=== PATIENT | female | born 1955 | race Caucasian/White ===

== ENCOUNTER 2019-05-06 13:21 | Observation (INO) | payer MEDICARE ==
[2019-05-06] MEDS ORDERED: Proparacaine 0.5% Opth 15 ML BOT ONE (13:49)
[2019-05-06] MEDS ORDERED: Meclizine HCl 25 MG TAB ONE (14:24)
[2019-05-06] MEDS ORDERED: hydrALAZINE 20 MG/ML VIAL SLOW IVP PRN (15:21)
[2019-05-06] MEDS ORDERED: Labetalol HCl 100 MG/20 ML VIAL SLOW IVP PRN (15:21)
[2019-05-06] MEDS ORDERED: Aspirin 325 mg Enteric Coated Tablet PO SCH (15:30)
--- NOTE | 2019-05-06 15:35 | PDOC.HHP ---
Hospitalist HPI - History of Present Illness Headache, blurry vision History of Present Illness: PCP: Lida Nj ([place]) The patient is a 64/F with PMH significant for TIA (2016), HTN, DMII (diet controlled), HLD, and anxiety that presents for the above complaints. Reports at approximately 0900 this morning, she was driving in her car when she developed a frontal headache, describes as sharp, lasting approximately 20 to 30 minutes, exacerbated with moving her eyes, relieved by nothing. She also reports associated blurry vision, describes as "like a haze", exacerbated with eye movements. Admits to feeling dizziness, like the room is spinning. She denies any recent trauma to head, falls, acute neck stiffness, or urinary incontinence. She immediately pulled her car over and called her daughter on her cell phone, only able to find her name on her phone because she is the first person in her contact list. Her daughter reports that the patient had slurred speech while speaking on the phone. She drove to her mother and took her to the nearest emergency department. Estimated 30 minutes from onset of symptoms to the [facility] ER. ED Course: GCS 14, confused NIH 1, partial gaze palsy CT brain negative for hemorrhage. EKG NSR Trop negative CMP and CBC unremarkable Given Tylenol for headache and transferred to [facility] Na 146, K 4.3, BUN 11, creatinine 0.6, Glucose 109, WBC 8.5, hgb 14.2, hct 44.1 , platelets 249 PT 12.5 and INR 1.0 At [facility] BP 156/86, HR 74, RR 18, spo2 98% RA, T 97.6f Meclizine 50mg oral x 1 dose Vision acuity test performed Hospitalist ROS - Review of Systems Constitutional: denies: fever, chills, sweats, weakness, malaise, other Eyes: reports: vision change (blurry, double vision) ENT: denies: nose discharge, nose congestion, throat pain (Reports chronic tinnitus) Respiratory: denies: cough, dry, shortness of breath, hemoptysis, SOB with excertion, pleuritic pain, sputum, wheezing, other Cardiovascular: denies: chest pain, palpitations, orthopnea, paroxysmal noc. dyspnea, edema, light headedness, other Gastrointestinal: reports: nausea. denies: vomiting, abdominal pain, diarrhea, constipation, hematochezia Genitourinary: denies: dysuria, frequency, incontinence, hematuria, retention, other Musculoskeletal: reports: neck pain (chronic), back pain (chronic) Skin: denies: rash, lesions, bruising Neurological: reports: weakness, change in speech, confusion. denies: incoordination Hospitalist History - Past Medical History Source: patient Cardiac: reports: HTN, Hyperlipidemia Pulmonary: reports: asthma, bronchitis [employer]CHITECT: reports: TIA Psych: reports: Anxiety Musculoskeletal: reports: Osteoarthritis Endocrine: reports: Diabetes (controlled with diet) - Past Surgical History Past Surgical History: reports: Appendectomy, Cholecystectomy, Hysterectomy, Total Hip Replacement (right), Total Knee Replacement (Left), Other (back surgery L5) - Family History Family History: reports: cardiac disorder, cerebrovascular accident, diabetes mellitus, hypertension, respiratory disorder - Social History Smoking Status: Former smoker (Quit 27 years ago) Alcohol: reports: None Drugs: reports: none Living Situation: With Family Occupation: Lives in [place], with spouse, on disability - Exam General Appearance: NAD ([employer] HINTS exam, no nystagmus, unremarkable test of skew; Became dizzy w/ testing CN III, IV, . Central truncal stability intact, while sitting on bed.), awake alert Eye: PERRL ENT: normocephalic atraumatic, moist mucosa Neck: supple, no thyromegaly, no lymphadenopathy, no carotid bruit Heart: RRR, no murmur, no gallops, no rubs Respiratory: CTAB, no wheezes, no rales, no ronchi Gastrointestinal: soft, non-tender, non-distended, normal bowel sounds, no guarding, no rigidity Extremities: no cyanosis, no edema Skin: no rashes Neurological: negative: facial droop, speech deficit Neurological - other findings: numbness to L face and LLE, ataxic with finger to nose Psychiatric: normal affect, A&O x 3 Hospitalist Results - EKG Interpretation EKG: NSR from [facility] Hospitalist H&P A/P - Plan Plan: Vertigo TIA r/o CVA HTN DMII HLD Non compliance with medication regimen H/O TIA Anxiety, chronic OA, chronic Bronchitis, chronic Plan: Admit to stroke unit monitoring coordinator, repeat troponin MRI brain, CD US, Echocardiogram Consult Neurology Consult PT/OT ASA daily Mecline scheduled orthostatics VS NIH per shift Accuchecks AC/HS, mild Sliding scale DVT prophylaxis BMP, CBC, FLP, B12, Folic acid in AM Full Code DPOA, spouse, Rory Sandoval, .
[2019-05-06] MEDS ORDERED: HumaLOG 300 UNITS/3 ML VIAL SC PRN (16:06)
[2019-05-06] MEDS ORDERED: Dextrose 5% in Water 1,000 ML IV PRN (16:06)
[2019-05-06] MEDS ORDERED: Dextrose 50% Abboject 50 ML SYRINGE SLOW IVP PRN (16:06)
[2019-05-06] MEDS ORDERED: Calcium Carbonate 500 MG ChewTAB PO PRN (16:15)
[2019-05-06] MEDS ORDERED: Acetaminophen 650 MG Suppository PR PRN (16:15)
--- NOTE | 2019-05-06 16:46 | MRI ---
MRI of thebrain: 05/06/2019 COMPARISON:None available HISTORY:Numbness and weakness of the fingers for a few days, blurred vision TECHNIQUE: Multiplanar multisequence MR imaging of thebrain without contrast Findings:The diffusion weighted imaging demonstrates no evidence for acute infarction. The axial grad ient echo imaging demonstrates no evidence for intracranial hemorrhage. There is a Chiari I malformation present, with the cerebellar tonsils extending 1 cm below the axial level of the foramen magnum. There are a few opacified mastoid air cells on the right, paranasal sinuses and mastoid air cells oth erwise unremarkable. Arterial flow voids at the axial level of the skull base appear unremarkable on the T2-weighted imaging. There are a few scattered foci of increased T2/FLAIR signal within the periventricular, deep, and sub cortical white matter, evidence of mild small vessel disease. IMPRESSION:Mild small vessel disease. Chiari I malformation. No intracranial hemorrhage or acute infa rction.
[2019-05-06] MEDS ORDERED: Aspirin Chewable 81 MG TAB ONE (17:06)
[2019-05-06] MEDS ORDERED: Propofol 1,000 MG/100 ML VIAL IV ONE (17:24)
[2019-05-06 17:45] LABS: Troponin I Less than 0.010 ng/mL (< 0.028)
[2019-05-06] MEDS ORDERED: predniSONE 20 MG TAB PO SCH (17:45)
[2019-05-06] MEDS ORDERED: Benzonatate 100 MG CAP PO PRN (17:56)
[2019-05-06] MEDS ORDERED: tiZANidine HCl 4 MG TAB PO PRN (18:54)
[2019-05-06] MEDS ORDERED: PROVENTIL INHALER 6.7 G (200 INHALATIONS) INH PRN (18:54)
[2019-05-06] MEDS ORDERED: DULoxetine 30 MG CAP PO PRN (18:54)
[2019-05-06] MEDS ORDERED: hydrALAZINE 10 MG TAB PO PRN (18:54)
[2019-05-06 19:31] VITALS: BMI 38.8
[2019-05-06] MEDS ORDERED: Famotidine 20 MG TAB PO SCH (21:00)
[2019-05-06] MEDS: Meclizine HCl 25 MG TAB PO SCH (21:56)
[2019-05-06] MEDS: Montelukast Sodium 10 mg Tablet PO SCH (21:59)
[2019-05-06] MEDS: Atorvastatin Calcium 20 MG TAB PO SCH (21:59)
[2019-05-06] MEDS: Acetaminophen 325 MG TAB PO PRN (21:59)
--- NOTE | 2019-05-06 22:48 | PRG ---
DATE OF SERVICE: 05/06/2019 SUBJECTIVE: A 64-year-old female with hypertension, diabetes mellitus type 2, hyperlipidemia, and TIA in the past, presented to [facility] with headaches along with blurriness of vision and vertigo. A CT scan of the brain was negative. She was transferred to this facility for hospital admission. OBJECTIVE: VITAL SIGNS: Reviewed. Her blood pressure in the emergency room was 156/86 with heart rate of 74. LUNGS: Clear to auscultation bilaterally. HEART: S1, S2 present. Regular. ABDOMEN: Soft. NEUROLOGIC: Grossly nonfocal. After meclizine in the emergency room, the vertigo has partially improved. Power was 5/5 in all extremities. There was no facial droop. There was minimal numbness on the left half of the face. The patient was alert, awake, oriented x3. LABORATORY DATA: EKG showed sinus rhythm. Labs were reviewed. PLAN: MRI of the brain will be obtained. We will continue sliding scale. Continue aspirin with statins. I agree with history and physical by the nurse practitioner, Ron Santiago. Job ID: [id number]
--- NOTE | 2019-05-06 23:39 | ULT ---
BILATERAL CAROTID DUPLEX ULTRASOUND: HISTORY: CVA, TIA, slurred speech and weakness TECHNIQUE: Grayscale, color-flow and spectral Doppler ultrasound imaging of the extracranial carotid artery syst ems was performed bilaterally. FINDINGS: There is plaque formation on both sides. The peak systolic velocity in the right ICA measures 103 cm/s with an end-diastolic velocity of 39 cm /s and a systolic ratio of 0.99. The peak systolic velocity in the left ICA measures 87 cm/s with an end-diastolic velocity of 24 cm/s and a systolic ratio of 0.86. Flow in both vertebral arteries remains antegrade. IMPRESSION: No evidence of hemodynamically significant stenosis in either ICA.
[2019-05-07 05:34] LABS: Cardiac Risk 2.8 (Less than 4.5)
[2019-05-07] MEDS: Meclizine HCl 25 MG TAB PO SCH ×3 (05:40→21:44)
[2019-05-07] MEDS ORDERED: predniSONE 20 MG TAB PO SCH (08:00)
[2019-05-07] MEDS: Enoxaparin Sodium 40 MG/0.4 ML SYRINGE SC SCH (08:49)
[2019-05-07] MEDS: Aspirin 81 mg Enteric Coated Tablet PO SCH (08:50)
[2019-05-07] MEDS ORDERED: FLU VACC QS2019-20(6MOS UP)/PF 60 MCG/0.5 ML SYRINGE IM ONE (09:00)
[2019-05-07] MEDS ORDERED: Aspirin 325 MG TAB PO SCH (09:00)
[2019-05-07] MEDS ORDERED: Cyanocobalamin 1000 MCG/ML VIAL IM SCH (09:45)
--- NOTE | 2019-05-07 10:39 | PDOC.HOSPP ---
- Subjective Encounter Date: 05/07/19 Encounter Time: 10:20 Subjective: Patient seen and examined for vertigo, blurry vision, and ataxia. Patient reports symptoms improved on meclizine. Denies any current vertigo or vision changes. Has no new complaints. No overnight events. - Objective Vital Signs & Weight: Vital Signs (12 hours) Temp Pulse Resp BP BP BP BP 05/07/19 08:41 139/69 157/81 H 137/60 05/07/19 07:56 97.6 F 66 13 148/61 H 05/07/19 04:00 97.8 F 70 16 151/68 H 05/07/19 00:00 97.7 F 70 16 135/50 L Pulse Ox 05/07/19 08:41 05/07/19 07:56 94 L 05/07/19 04:00 93 L 05/07/19 00:00 92 L Weight Weight 219 lb 4.8 oz Additional Labs: Accuchecks 05/06/19 22:18 POC Glucose 98 Laboratory Tests 05/07/19 05/07/19 05/07/19 04:45 04:45 04:45 Triglycerides 187 H Cholesterol 152 LDL Cholesterol, Calc 61 HDL Cholesterol 54 Heart Disease Risk Ratio 2.8 Vitamin B12 263 Folate 8.20 EKG Reviewed by me: Yes (NSR) Hospitalist ROS - Review of Systems Constitutional: denies: fever, chills, sweats, weakness, malaise, other Eyes: denies: pain, vision change, conjunctivae inflammation, eyelid inflammation, redness, other Respiratory: denies: cough, dry, shortness of breath, hemoptysis, SOB with excertion, pleuritic pain, sputum, wheezing, other Cardiovascular: denies: chest pain, palpitations, orthopnea, paroxysmal noc. dyspnea, edema, light headedness, other Gastrointestinal: denies: nausea, vomiting, abdominal pain, diarrhea, constipation, melena, hematochezia, other Neurological: denies: weakness, numbness, incoordination, change in speech, confusion, seizures, other Other: denies headaches, dizziness, or weakness to extremities. - Medication Medications: Active Medications Generic Name Dose Route Start Last Admin Trade Name Freq PRN Reason Stop Dose Admin Acetaminophen 650 mg 05/06/19 16:15 05/06/19 21:59 Tylenol PO 650 mg Q4H PRN Administration Headache/Fever/Mild Pain (1-3) Aspirin 81 mg 05/07/19 09:00 05/07/19 08:50 Ecotrin PO 81 mg DAILY SHAYY Administration Atorvastatin Calcium 20 mg 05/06/19 21:00 05/06/19 21:59 Lipitor PO 20 mg HS SHAYY Administration Cyanocobalamin 1,000 mcg 05/07/19 09:45 05/07/19 10:30 Vitamin B-12 IM 05/07/19 12:00 1,000 mcg NOW SHAYY Administration Enoxaparin Sodium 40 mg 05/07/19 09:00 05/07/19 08:49 Lovenox SC 40 mg 0900 SHAYY Administration Meclizine HCl 25 mg 05/06/19 22:00 05/07/19 05:40 Antivert PO 25 mg Q8HR SHAYY Administration Metoprolol Succinate 50 mg 05/06/19 21:00 05/06/19 21:59 Toprol Xl PO 50 mg HS SHAYY Administration Montelukast Sodium 10 mg 05/06/19 21:00 05/06/19 21:59 Singulair PO Not Given HS SHAYY Pantoprazole Sodium 40 mg 05/07/19 09:00 05/07/19 08:50 Protonix PO 40 mg DAILY SHAYY Administration Sodium Chloride 10 ml 05/06/19 15:21 05/07/19 08:50 Flush - Normal Saline IVF 10 ml PRN PRN Administration Saline Flush - Exam General Appearance: NAD, awake alert Eye: PERRL ENT: normocephalic atraumatic Heart: RRR, no murmur, no gallops, no rubs, normal peripheral pulses Respiratory: CTAB, no wheezes, no rales, no ronchi Gastrointestinal: soft, non-tender, non-distended, normal bowel sounds Neurological: cranial nerve grossly intact, no focal deficits Musculoskeletal: normal tone, normal strength Psychiatric: normal affect, A&O x 3 Hosp A/P - Plan Blurry headache, blurry vision, ataxia, likely secondary chiari malformation 1 CVA ruled out HTN, chronic, controlled DMII, chronic HLD Non compliance with medication regimen H/O TIA Anxiety, chronic OA, chronic Bronchitis, chronic Plan: Continue meclizine Consulted neurology Consulted neurosurgery PT/OT to evaluate and treat Stop NIH q shift Continue ASA daily Continue home medications Accuchecks AC/HS DVT prophylaxis
--- NOTE | 2019-05-07 12:10 | PRG ---
DATE OF SERVICE: 05/07/2019 This is a 30-minute initial visit note, in which 30 minutes were spent reviewing the imaging record, evaluation and examination of patient, formulation of plan. Greater than 50% time was spent in counseling on Anitra Sandoval, 1955. I reviewed the notes of my colleague, Esthela Cook PA-C, and agrees with its content. Ms. Sandoval is a 64-year-old woman who presented with classic symptoms of posterior fossa headache and blurred vision, that certainly could be related to Chiari 1 malformation. She has approximately 10 mm of descent of her cerebellar tonsils down to the C1 ring and would likely benefit from a Chiari decompression. However, I would not recommend this at this current time. I will arrange for followup in my clinic. She will need a cervical spine MRI without and with contrast to further evaluate for the presence of a syrinx and the cervical cord. We will then discuss in clinic risks and benefits of Chiari 1 decompression with tensor fascia joycelyn duraplasty. The patient tells me she also has "bulging disks" in her neck and the cervical spine MRI will help us in that regard to determine the necessity of treating that . She may be sent home in any time. Our medical colleagues feel appropriate Chiari 1 malformation. Job ID: [id number]
[2019-05-07] MEDS ORDERED: Meclizine HCl 25 MG TAB PO PRN (12:25)
[2019-05-07] MEDS ORDERED: Ketorolac Tromethamine 30 MG/ML VIAL IVP SCH (17:15)
--- NOTE | 2019-05-07 17:19 | CON ---
DATE OF CONSULTATION: 05/07/2019 CONSULTING PHYSICIAN: Hospitalist Services. IMPRESSION: Migraine. PLAN: Toradol 30 mg IV now. HISTORY OF PRESENT ILLNESS: Ms. Sandoval is a 64-year-old woman with a past history of migraines, diabetes, hypertension, and hyperlipidemia. She presented to the hospital with complaints of a severe headache and some blurred vision. Her headache is still ongoing at this point. The blurred vision waxes and wanes. Her vital signs have been stable and she is afebrile. She had an MRI of the brain done, which only showed some minimal small-vessel ischemic changes. A carotid ultrasound did not show any stenosis. Her EKG shows a normal sinus rhythm. Her CT scan of the brain did not reveal any evidence of a bleed. PAST HISTORY: 1. Migraine. 2. Hypertension. 3. Diabetes. 4. Hyperlipidemia. ALLERGIES: NONE. SOCIAL HISTORY: No tobacco. FAMILY HISTORY: Noncontributory. REVIEW OF SYSTEMS: Ten-system review of systems is otherwise negative. PHYSICAL EXAMINATION: GENERAL: She is an overweight, middle-aged woman, in no acute distress. VITAL SIGNS: Blood pressure 148/61, pulse 66, respirations 13. HEENT: Pupils equal. Conjunctivae clear. Oropharynx clear. NECK: Supple. EXTREMITIES: No cyanosis or edema. NEUROLOGIC: She is alert and appropriate. Her speech is fluent and clear. Cranial nerves are intact. She has equal strength. She can stand and walk independently. No abnormal movements were seen. LABORATORY DATA: EKG shows a sinus rhythm. SUMMARY: This a middle-aged woman with history of migraines, presents with some headache and blurred vision. Her stroke workup is negative. I have ordered some Toradol and she can follow up with me as an outpatient. Job ID: [id number]
[2019-05-07] MEDS: Montelukast Sodium 10 mg Tablet PO SCH (21:44)
[2019-05-07] MEDS: Atorvastatin Calcium 20 MG TAB PO SCH (21:44)
[2019-05-08] MEDS: Meclizine HCl 25 MG TAB PO SCH ×2 (05:56→14:31)
[2019-05-08] MEDS ORDERED: Cyanocobalamin (Vitamin B-12) 1,000 MCG TAB PO SCH (09:00)
[2019-05-08] MEDS: Enoxaparin Sodium 40 MG/0.4 ML SYRINGE SC SCH (09:03)
[2019-05-08] MEDS: Aspirin 81 mg Enteric Coated Tablet PO SCH (09:04)
[2019-05-08] MEDS: Acetaminophen 325 MG TAB PO PRN ×2 (10:51→16:36)
[2019-05-08] MEDS ORDERED: hydrALAZINE 25 MG TAB PO SCH ×2 (13:30→21:00)
[2019-05-08 15:53] VITALS: BP 174/76; TEMP 97.7
--- NOTE | 2019-05-08 19:56 | DIS ---
DATE OF ADMISSION: 05/06/2019 DATE OF DISCHARGE: 05/08/2019 DISCHARGE DISPOSITION: Home. FOLLOWUP: 1. Follow up with primary care physician, Dr. Jesus Nj, in 1 week. 2. Follow up with Neurosurgery, Dr. Brice, as scheduled. ALLERGIES: NO KNOWN DRUG ALLERGIES. THE PATIENT WAS SEEN ON THE DAY OF DISCHARGE. DENIES ANY NEW COMPLAINTS. NO NEW FOCAL DEFICIT. BRIEF HOSPITAL COURSE: The patient is a 64-year-old female with hypertension, diabetes mellitus type 2, hyperlipidemia, and TIA in the past, presented to the emergency room with headache, blurriness of vision along with vertigo. Please refer to the history and physical for further details. The patient was admitted to the Stroke Unit with a diagnosis of suspected transient ischemic attack rule out CVA. MRI of the brain was obtained, which showed Chiari I malformation along with mild small-vessel disease. There was no acute CVA. Carotid Doppler was negative for hemodynamically significant stenosis. Echocardiogram showed ejection fraction 55% to 60% with mild mitral regurgitation and mild tricuspid regurgitation. The patient was evaluated by Neurology and Neurosurgery. The patient was advised to follow up with Neurosurgery as an outpatient. She will require cervical spine MRI with and without contrast as outpatient per Neurosurgery recommendation. The patient appears stable for discharge. Her symptoms have significantly improved. She ambulated 500 feet today with a walker. A prescription for walker was provided. She was advised to follow up with the primary care physician. Significant labs; vitamin B12 of 263. Folate 8.2. Fasting lipid showed triglyceride 187, cholesterol 152, LDL 61, HDL 54. The patient understands the above plan of care. Job ID: [id number]
== END 2019-05-08 18:10 | disposition home or self-care (01) ==
LOC: ERS 13:21 → 2SE 19:20
PROVIDERS: ADMIT Internal Medicine; ATTEND Internal Medicine
DX: G93.5 Compression of brain (principal); I10 Essential (primary) hypertension; E11.9 Type 2 diabetes mellitus without complications; E78.5 Hyperlipidemia, unspecified; F41.9 Anxiety disorder, unspecified; J42 Unspecified chronic bronchitis; M19.90 Unspecified osteoarthritis, unspecified site; Z87.891 Personal history of nicotine dependence; Z91.14 Patient's other noncompliance with medication regimen; Z86.73 Personal history of transient ischemic attack (TIA), and cerebral infarction without residual deficits; Z88.0 Allergy status to penicillin
CPT/HCPCS: 70551; 80061; 82607; 82746; 82962 ×2; 84484; 93005; 93306; 93880; 96372 ×2; 96374; 97116 ×2; 97139 ×3; 97530; 99285; G0378 ×4; 36415; 36416; J1650; J1885; J2704; J3420; J8597

== ENCOUNTER 2019-08-11 06:50 | Outpatient (CLI) | payer MEDICARE, OTHER ==
[2019-08-11 10:13] LABS: Hemoglobin 13.7 g/dL (12.0-16.0); Mean Corpuscular HGB CONC 33.3 g/dL (32.0-36.0); Mean Corpuscular Volume 92.9 fL (78.0-98.0); Mean Platelet Volume 8.8 fL (7.4-10.4); Platelet Count 232 thou/uL (130-400); RBC Distribution Width 12.1 % (11.5-14.5); Red Blood Cell (RBC) Count 4.43 mill/uL (4.20-5.40); White Blood Cell (WBC) Count 8.2 thou/uL (4.8-10.8)
[2019-08-11 10:20] LABS: INR-International Normal Ratio 0.9; PTT 30.9 sec (22.9-36.1); Prothrombin Time 11.8 sec (12.0-14.7)
[2019-08-11 10:34] LABS: Anion Gap 12 mmol/L (10-20); BUN (Urea Nitrogen) 13 mg/dL (9.8-20.1); Calc. Creatinine Clearance 0 mL/min (70-130); Calcium 9.5 mg/dL (7.8-10.44); Carbon Dioxide 28 mmol/L (23-31); Chloride 105 mmol/L (98-107); Estimated GFR-MDRD 79; Glucose 112 mg/dL (80-115); Sodium 141 mmol/L (136-145)
[2019-08-11 17:44] LABS: SARS-CoV-2 MS2 Positive; SARS-CoV-2 N Gene Negative; SARS-CoV-2 S Gene Negative; SARS-CoV-2 orf1ab Negative
== END 2019-08-11 06:51 | disposition home or self-care (01) ==
LOC: LABBT 06:50
PROVIDERS: ATTEND Surgery
DX: Z01.812 Encounter for preprocedural laboratory examination (principal); Z11.59 Encounter for screening for other viral diseases; G93.5 Compression of brain
CPT/HCPCS: 80048; 85027; 85610; 85730; 93005; U0003; 87635; 93010

== ENCOUNTER 2019-08-13 05:45 | Inpatient (IN) | payer MEDICARE, OTHER ==
[2019-08-11 08:20] VITALS: BMI 43.9
[2019-08-13] MEDS ORDERED: Thrombin 5000 UNITS/5 ML VIAL ONE (06:35)
[2019-08-13] MEDS ORDERED: Clindamycin/D5W 900 mg/50 ml Premix Bag ONE (06:44)
[2019-08-13] MEDS ORDERED: Levofloxacin 500 mg/D5W 100 ml Premix Bag ONE (06:44)
[2019-08-13] MEDS ORDERED: Bacitracin Zinc Ointment 30 gm TUBE ONE (06:52)
[2019-08-13] MEDS ORDERED: Fentanyl 250 MCG/5 ML VIAL ONE (07:04)
[2019-08-13] MEDS ORDERED: SUGAMMADEX SODIUM 200 MG/2 ML VIAL ONE (07:04)
[2019-08-13] MEDS ORDERED: levETIRAcetam 1000 MG/100 ML PREMIX BAG ONE (07:05)
[2019-08-13] MEDS ORDERED: levETIRAcetam 500 MG/100 ML PREMIX BAG ONE (07:05)
[2019-08-13] MEDS ORDERED: Albumin 5% 500 ML ONE (07:05)
[2019-08-13] MEDS ORDERED: Midazolam HCl 2 mg/2 ml Vial ONE (07:15)
[2019-08-13] MEDS ORDERED: Phenylephrine 10 MG/ML VIAL ONE (10:28)
[2019-08-13] MEDS ORDERED: PHENYLEPHRINE-NS 100 MCG/ML 10 ML SYRINGE ONE ×2 (10:28→14:11)
[2019-08-13] MEDS ORDERED: Promethazine HCl 25 MG/ML VIAL IM PRN (10:36)
[2019-08-13] MEDS ORDERED: HYDROmorphone 2 MG/ML VIAL SLOW IVP PRN (10:36)
[2019-08-13] MEDS ORDERED: Ondansetron HCl/PF 4 MG/2 ML Vial IVP PRN (10:36)
[2019-08-13] MEDS ORDERED: Promethazine HCl 25 MG/ML VIAL SLOW IVP PRN (10:36)
[2019-08-13] MEDS ORDERED: PACU-Morphine 4MG/ML VIAL SLOW IVP PRN (10:36)
[2019-08-13] MEDS ORDERED: Morphine Sulfate 2 MG/ML SYRINGE SLOW IVP PRN (10:36)
[2019-08-13] MEDS ORDERED: Docusate 100 MG CAP PO PRN (11:20)
[2019-08-13] MEDS ORDERED: Acetaminophen 325 MG TAB PO PRN (11:20)
[2019-08-13] MEDS ORDERED: Esmolol 100 MG/10 ML VIAL ONE ×2 (11:26→14:11)
[2019-08-13] MEDS ORDERED: Benzonatate 100 MG CAP PO PRN (11:27)
[2019-08-13] MEDS ORDERED: Montelukast Sodium 10 mg Tablet PO PRN (11:27)
[2019-08-13] MEDS ORDERED: Acetaminophen/Codeine 30-300mg Tablet PO PRN (11:27)
[2019-08-13] MEDS ORDERED: Meclizine HCl 25 MG TAB PO PRN (11:27)
[2019-08-13] MEDS ORDERED: hydrALAZINE 25 MG TAB PO PRN (11:27)
[2019-08-13] MEDS ORDERED: Fentanyl 100 MCG/2 ML VIAL ONE ×2 (11:54→12:17)
[2019-08-13] MEDS ORDERED: Albuterol Sulfate 2.5 mg/3 ml Neb NEB PRN (12:00)
[2019-08-13] MEDS: Sodium Chloride 0.9% 1,000 ML IV SCH ×2 (12:55→23:43)
[2019-08-13] MEDS: Clindamycin/D5W 900 MG in Premix Bag 1 BAG IVPB SCH ×2 (13:38→19:41)
[2019-08-13] MEDS ORDERED: Dexamethasone 20 MG/5 ML VIAL ONE (14:11)
[2019-08-13] MEDS ORDERED: EPHEDRINE 25 MG/5 ML SYRINGE ONE (14:11)
[2019-08-13] MEDS ORDERED: Lidocaine 1% PF 5 ML VIAL ONE ×2 (14:11)
[2019-08-13] MEDS ORDERED: Ondansetron PF 4 MG/2 ML Vial ONE (14:11)
[2019-08-13] MEDS ORDERED: PROPOFOL 200 MG/20 ML VIAL ONE (14:11)
--- NOTE | 2019-08-13 14:11 | OP ---
DATE OF PROCEDURE: 08/13/2019 LOCOMOTIVE DRIVER: Esthela Cook PA-C. PREPROCEDURE DIAGNOSES: Chiari I malformation with tonsillar descent to the C1 ring with suboccipital headaches and blurred vision. POSTPROCEDURE DIAGNOSES: Chiari I malformation with tonsillar descent to the C1 ring with suboccipital headaches and blurred vision. PROCEDURE PERFORMED: 1. Suboccipital decompression, C1 laminectomy to relieve pressure due to Chiari I malformation. 2. Lysis of arachnoid adhesions around the tonsils of the cerebellum and caodaism of CSF flow across the foramen magnum. 3. Use of operative microscope for microdissection. 4. Harvesting of left fascia joycelyn graft and use for dural patch repair. DESCRIPTION OF PROCEDURE: After informed consent was obtained from the patient, the patient was brought to the OR. Proper patient, pause, and identification were carried out. She was placed under excellent general endotracheal anesthesia and positioned prone on the OR table. Following placement of Mars Preethi head shipper, head was secured in chin-tuck position and all appropriate areas were sterilely cleansed, prepared, and draped in the suboccipital region. Hair was clipped. Also, left fascia joycelyn wound was identified. This area was sterilely cleansed, prepared, and draped. Proper patient, pause, and identification were carried out. The wound was then opened with a combination of sharp, monopolar, and blunt dissection. Suboccipital craniectomy was then performed. We were careful to preserve the space lateral to the foramen magnum and there was no violation of the atlantooccipital joints bilaterally. We also did C1 laminectomy. The dura was then opened in a Y-shaped fashion with abrupt release of CSF indicating pressure across foramen magnum above and below. We then lysed adhesions with the use of the operating microscope around the tonsils to restore flow. We then turned our attention to harvesting the left fascia joycelyn graft and this was done. This was brought up following irrigation and closed with the dura to widen the dural repair. Copious irrigation occurred throughout as did maximizing hemostasis. The wounds were closed in anatomic layers following sprinkling of vancomycin powder. The patient emerged from anesthesia. Job ID: [id number]
[2019-08-13] MEDS: Ondansetron PF 4 MG/2 ML Vial IVP PRN ×3 (14:21→23:43)
[2019-08-13] MEDS: Morphine 2 MG/ML SYRINGE SLOW IVP PRN ×4 (14:31→20:58)
[2019-08-13] MEDS ORDERED: Labetalol HCl 100 MG/20 ML VIAL SLOW IVP PRN (17:01)
[2019-08-13] MEDS: Atorvastatin Calcium 20 MG TAB PO SCH (20:26)
[2019-08-13] MEDS: niCARdipine 25 MG in Sodium Chloride 0.9% 250 ML 240 ML IVPB SCH (20:41)
[2019-08-14] MEDS: niCARdipine 25 MG in Sodium Chloride 0.9% 250 ML 240 ML IVPB SCH ×6 (01:22→21:51)
[2019-08-14] MEDS: Clindamycin/D5W 900 MG in Premix Bag 1 BAG IVPB SCH ×4 (02:14→20:45)
[2019-08-14 03:58] LABS: Anion Gap 15 mmol/L (10-20); BUN (Urea Nitrogen) 9 mg/dL (9.8-20.1); Calc. Creatinine Clearance 124 mL/min (70-130); Calcium 8.2 mg/dL (7.8-10.44); Carbon Dioxide 19 mmol/L (23-31); Chloride 106 mmol/L (98-107); Estimated GFR-MDRD 79; Glucose 166 mg/dL (80-115); Potassium 4.2 mmol/L (3.5-5.1); Sodium 136 mmol/L (136-145)
[2019-08-14 04:02] LABS: #Basophils 0.1 thou/uL (0.0-0.2); #Lymphocytes 1.3 thou/uL (1.20-3.40); #Monocytes 1.2 thou/uL (0.11-0.59); #Neutrophils 14.8 thou/uL (1.40-6.50); %Basophils 0.6 % (0.0-1.0); %Eosinophils 0.2 % (0.0-10.0); %Lymphocytes 7.5 % (21.0-51.0); %Neutrophils 84.7 % (42.0-75.0); Hemoglobin 13.2 g/dL (12.0-16.0); Mean Corpuscular HGB CONC 33.1 g/dL (32.0-36.0); Mean Corpuscular Hemoglobin 30.7 pg (27.0-31.0); Mean Platelet Volume 8.8 fL (7.4-10.4); Platelet Count 133 thou/uL (130-400); Platelet Morphology Comment Appears Adequate; RBC Distribution Width 12.2 % (11.5-14.5); White Blood Cell (WBC) Count 17.4 thou/uL (4.8-10.8)
[2019-08-14] MEDS: Morphine 2 MG/ML SYRINGE SLOW IVP PRN ×4 (05:14→12:38)
[2019-08-14] MEDS: Ondansetron PF 4 MG/2 ML Vial IVP PRN (05:14)
[2019-08-14] MEDS ORDERED: Promethazine HCl 12.5 MG in Sodium Chloride 0.9% 50 ML IVPB PRN (07:43)
[2019-08-14] MEDS ORDERED: Famotidine 20 MG TAB PO SCH (09:00)
--- NOTE | 2019-08-14 09:18 | CON ---
DATE OF CONSULTATION: 08/14/2019 REASON FOR CONSULTATION: Postop CCU management. HISTORY OF PRESENT ILLNESS: This is a 64-year-old female, who underwent surgery for Chiari malformation. Yesterday, this consisted of a C1 laminectomy, lysis of arachnoid adhesions, and dural patch repair. She is left with a headache and nausea. She is currently on a nicardipine drip. She is not wanting to talk, but her is at the bedside. PAST MEDICAL HISTORY: 1. Diet-controlled diabetes mellitus. 2. Hypertension. 3. Hyperlipidemia. 4. COPD. 5. DEAN, not compliant with CPAP. 6. Depression. SOCIAL HISTORY: Quit smoking in 2005. Does not consume alcohol. MEDICATIONS: Prior to admission; 1. Protonix 40 mg daily. 2. Tessalon 100 mg t.i.d. p.r.n. 3. Aspirin 81 mg daily. 4. Singulair 10 mg daily. 5. Meclizine 25 mg every 8 hours as needed. 6. Tizanidine 4 mg as needed. 7. Metoprolol-XL 50 mg daily. 8. Atorvastatin 20 mg nightly. 9. Acetaminophen with codeine one every 6 hours as needed. 10. Apresoline 25 mg t.i.d. p.r.n. 11. Multivitamin one daily. 12. Vitamin B12 of 1000 mcg daily. 13. Ascorbic acid 250 mg daily. 14. Albuterol HFA metered-dose inhaler two puffs every 4 hours as needed. ALLERGIES: PENICILLIN. REVIEW OF SYSTEMS: Cannot be obtained as the patient choses to be nonverbal at this time. PHYSICAL EXAMINATION: VITAL SIGNS: Temperature 98.7, pulse 100, blood pressure 149/78, and O2 saturation 100%. GENERAL: She is currently on her side in the position with washcloth over her head. HEENT: Remarkable for bandage over the back of her neck. LUNGS: Clear. CARDIAC: S1 and S2. Regular. ABDOMEN: Soft. EXTREMITIES: No edema. LABORATORY DATA: Sodium 136, potassium 4.2, chloride 106, CO2 of 19, BUN 9, creatinine 0.7, and glucose 166. White blood cell count 17.4, hematocrit 40, and platelet count 133. ASSESSMENT: 1. Status post operative repair of Chiari malformation. 2. History of hypertension. 3. Mild chronic obstructive pulmonary disease. 4. Underlying obstructive sleep apnea. PLAN: Supportive care with nicardipine drip as needed. Restart oral medications when the patient is able to hold medications down. We will follow with you. Job ID: [id number]
[2019-08-14] MEDS: Pantoprazole 40 MG VIAL IVP SCH (09:37)
[2019-08-14] MEDS ORDERED: Dexamethasone 4 mg/ml Vial SLOW IVP SCH (10:01)
--- NOTE | 2019-08-14 10:08 | PRG ---
DATE OF SERVICE: 08/14/2019 Ms. Sandoval is postoperative day 1 from suboccipital decompression and C1 laminectomy with left tensor fascia joycelyn harvest for dural graft. As expected, she has evidence of significant nausea and vomiting today. We have added Phenergan to her Zofran. She has also had systolic blood pressure over 140 and was on a nicardipine drip overnight, I will loosen this limit to systolic blood pressure allowed up to 150. We will also change her neuro checks every 2 hours. She is neurologically intact, but again appears as is typical following Chiari decompression. Perhaps tomorrow, she can go to the floor. We will initiate Decadron taper to assist with inflammatory cascade management. Job ID: [id number]
[2019-08-14] MEDS: Promethazine HCl 25 MG/ML VIAL SLOW IVP PRN (10:41)
[2019-08-14] MEDS: Ascorbic Acid 500 mg Chewable Tablet PO SCH (12:39)
[2019-08-14] MEDS: Cyanocobalamin (Vitamin B-12) 1,000 MCG TAB PO SCH (12:39)
[2019-08-14] MEDS: Sodium Chloride 0.9% 1,000 ML IV SCH (16:02)
[2019-08-14] MEDS: Dexamethasone 4 mg/ml Vial SLOW IVP SCH ×2 (16:02→21:51)
[2019-08-14] MEDS: Atorvastatin Calcium 20 MG TAB PO SCH (20:45)
[2019-08-15] MEDS: niCARdipine 25 MG in Sodium Chloride 0.9% 250 ML 240 ML IVPB SCH (00:09)
[2019-08-15] MEDS: Promethazine HCl 25 MG/ML VIAL SLOW IVP PRN (01:33)
[2019-08-15] MEDS: Sodium Chloride 0.9% 1,000 ML IV SCH ×2 (03:04→17:47)
[2019-08-15] MEDS: Dexamethasone 4 mg/ml Vial SLOW IVP SCH ×4 (03:29→21:08)
[2019-08-15] MEDS: Labetalol HCl 100 MG/20 ML VIAL SLOW IVP PRN (05:15)
--- NOTE | 2019-08-15 08:00 | PRG ---
DATE OF SERVICE: 08/15/2019 I saw Ms. Sandoval in the ICU this morning. Her pain is still not under reasonable control. The pain is keeping her blood pressure up and the blood pressure being elevated as left her in a Cardene drip. The drip is keeping her in the ICU. When I speak with her this morning, she complains of pain. She has not been out of bed. Among her electronically recorded vital signs, I see a maximum temperature of 99.2. Her blood pressures have been in the 150s even on the Cardene drip. I do not find any new neurological deficits. There is no cranial neuropathy as her arms and legs are working well. My plan for Ms. Sandoval is to enlist the support of Anesthesia group for acute pain management. Perhaps getting her on a EXTRUSION DIE TEMPLATE MAKER pump will obviate the need for continued Cardene drip. Once that drip can be stopped, then she can leave the ICU. Job ID: [id number]
[2019-08-15] MEDS: tiZANidine HCl 4 MG TAB PO PRN (08:06)
[2019-08-15] MEDS: Ascorbic Acid 500 mg Chewable Tablet PO SCH (08:07)
[2019-08-15] MEDS: Pantoprazole 40 MG VIAL IVP SCH (08:07)
[2019-08-15] MEDS: Cyanocobalamin (Vitamin B-12) 1,000 MCG TAB PO SCH (08:07)
[2019-08-15] MEDS: Morphine 2 MG/ML SYRINGE SLOW IVP PRN (08:08)
--- NOTE | 2019-08-15 09:50 | PRG ---
DATE OF SERVICE: 08/15/2019 SUBJECTIVE: The patient is doing reasonably well in all things considered. Currently, she is sleeping. OBJECTIVE: VITAL SIGNS: Temperature 98.9, pulse 67, blood pressure 96/55, O2 sat 96%. HEENT: She has a bandage on the back of her neck. LUNGS: Clear. CARDIAC: S1 and S2. Regular. ABDOMEN: Soft. EXTREMITIES: No edema. LABORATORY DATA: No labs were obtained today. ASSESSMENT: 1. Postoperative repair of Chiari malformation. 2. History of hypertension. 3. Mild chronic obstructive pulmonary disease. 4. Underlying obstructive sleep apnea. PLAN: The patient is to restart her oral medications. She will be taken off the nicardipine drip. Hopefully, we can get her up out of bed today. Job ID: [id number]
[2019-08-15] MEDS ORDERED: Amlodipine 10 MG TAB PO SCH ×2 (14:00→14:15)
[2019-08-15] MEDS: HYDROcodone/Acetaminophen 7.5/325 mg Tablet PO PRN ×2 (16:30→20:29)
[2019-08-15] MEDS: Atorvastatin Calcium 20 MG TAB PO SCH (20:24)
[2019-08-16] MEDS: Ketorolac Tromethamine 30 MG/ML VIAL IVP PRN (00:01)
[2019-08-16] MEDS: HYDROcodone/Acetaminophen 7.5/325 mg Tablet PO PRN ×3 (00:01→13:48)
[2019-08-16] MEDS: Dexamethasone 4 mg/ml Vial SLOW IVP SCH ×4 (03:47→20:59)
[2019-08-16] MEDS: Labetalol HCl 100 MG/20 ML VIAL SLOW IVP PRN ×4 (03:51→23:18)
[2019-08-16] MEDS: Sodium Chloride 0.9% 1,000 ML IV SCH ×2 (05:43→20:58)
--- NOTE | 2019-08-16 07:11 | PRG ---
DATE OF SERVICE: 08/16/2019 Ms. Sandoval is 3 days out from a Chiari decompression with fascia joycelyn dural closure. She has not gotten out of bed. She is starting to move her neck and head a little bit, more over the pain is significant. She did make it out of the ICU after changes were made to her analgesic regimen. Among the vital signs, I do not see any fevers recorded. The others are stable. There is no new neurological deficit. Ms. Sandoval needs immobilization. I have ordered Physical Therapy to start getting her out of bed. We will need an ultrasound of her legs because she has been sedentary the entire time since her surgery. I am worried about a DVT. When she is safe for ADLs, she can go home, but that is not any time soon. Job ID: [id number]
[2019-08-16] MEDS: Amlodipine 10 MG TAB PO SCH (09:07)
[2019-08-16] MEDS: Cyanocobalamin (Vitamin B-12) 1,000 MCG TAB PO SCH (09:08)
[2019-08-16] MEDS: Ascorbic Acid 500 mg Chewable Tablet PO SCH (09:10)
--- NOTE | 2019-08-16 10:14 | ULT ---
EXAM: Bilateral lower extremity venous Doppler US HISTORY: bilateral lower extremity edema and pain, postop status FINDINGS: Grayscale, color-flow, Doppler evaluation, spectral analysis of the bilateral lower extremities venou s structures is performed with 2-D imaging. The bilateral common femoral, superficial femoral, popliteal, posterior tibial, proximal greater saphenous and profunda femoral veins are imaged. There is normal luminal compressibility, flow, and augmentation in the visualized deep venous structu res of the bilateral lower extremities. IMPRESSION: No evidence of a deep vein thrombosis in either lower extremity.
[2019-08-16] MEDS: tiZANidine HCl 4 MG TAB PO PRN (13:48)
[2019-08-16] MEDS: hydrALAZINE 20 MG/ML VIAL SLOW IVP PRN ×2 (15:25→21:08)
[2019-08-16] MEDS: Atorvastatin Calcium 20 MG TAB PO SCH (20:58)
[2019-08-16] MEDS: Morphine 2 MG/ML SYRINGE SLOW IVP PRN (23:19)
[2019-08-17] MEDS: Ondansetron PF 4 MG/2 ML Vial IVP PRN (00:20)
[2019-08-17] MEDS: HYDROcodone/Acetaminophen 7.5/325 mg Tablet PO PRN ×4 (00:20→19:43)
[2019-08-17] MEDS: tiZANidine HCl 4 MG TAB PO PRN ×3 (00:27→20:16)
[2019-08-17] MEDS: Dexamethasone 4 mg/ml Vial SLOW IVP SCH ×4 (03:47→22:40)
[2019-08-17] MEDS: Labetalol HCl 100 MG/20 ML VIAL SLOW IVP PRN (07:57)
[2019-08-17] MEDS: Ascorbic Acid 500 mg Chewable Tablet PO SCH (08:02)
[2019-08-17] MEDS: Cyanocobalamin (Vitamin B-12) 1,000 MCG TAB PO SCH (08:03)
[2019-08-17] MEDS: Amlodipine 10 MG TAB PO SCH (08:04)
[2019-08-17] MEDS ORDERED: hydrALAZINE 20 MG/ML VIAL SLOW IVP PRN (08:18)
[2019-08-17] MEDS ORDERED: Labetalol HCl 100 MG/20 ML VIAL SLOW IVP PRN (08:27)
--- NOTE | 2019-08-17 09:40 | PRG ---
DATE OF SERVICE: 08/17/2019 Ms. Sandoval is now 4 days postop after undergoing Arnold Chiari malformation decompression and left fascia joycelyn duraplasty last week. She has remained afebrile over the weekend. However, blood pressure control has been an issue. Her blood pressure was elevated at 176/70 this morning. Prn hydralazine and labetalol have been ordered, and she was also placed on amlodipine and metoprolol. She reports significant pain and headache, as well as dizziness with movement. She states that she has not yet been able to stand or ambulate, but she has been able to sit up at the side of the bed. However, this causes increased dizziness to where she has to lie back down. Otherwise, she has good movement and strength throughout her upper and lower extremities. She states that her nausea has improved over the weekend. The patient states that she will not be able to care for herself upon going home , thus I discussed with her likely plan for her is to require inpatient rehab for additional therapies and mobilization prior to going home. Doppler ultrasound of the bilateral lower extremities completed yesterday was negative for DVT. At this time, plan will be to continue optimizing pain control and work on further mobilization. I have placed a consult to the hospitalist team for further assistance with oral blood pressure control. I have encouraged the patient to continue working with therapies. Our team will re-evaluate the patient tomorrow. Please call for any neurologic changes or other concerns. Job ID: [id number] MTDD
--- NOTE | 2019-08-17 11:42 | PDOC.HOSPP ---
- Subjective Encounter Date: 08/17/19 Encounter Time: 08:45 Subjective: Patient seen and examined for med mngt. No CP/SOB/fever/edema. No new complaints. No overnight events - Objective Vital Signs & Weight: Vital Signs (12 hours) Temp Pulse Resp BP BP Pulse Ox 08/17/19 10:12 141/78 H 08/17/19 09:34 83 171/82 H 08/17/19 08:04 81 08/17/19 07:58 98.3 F 81 18 176/70 H 93 L 08/17/19 07:57 81 08/17/19 02:59 98.3 F 83 16 119/69 93 L Weight Admit Weight 232 lb 9.403 oz Weight 225 lb Most Recent Monitor Data Heart Rate from ECG 80 NIBP 152/81 NIBP BP-Mean 104 Respiration from ECG 15 SpO2 97 I&O: 08/16/19 08/17/19 08/18/19 06:59 06:59 06:59 Intake Total 1200 2688 Output Total 2295 2525 Balance -1095 163 Result Diagrams: 08/14/19 03:39 08/14/19 03:39 Radiology Reviewed by me: Yes (MRI 05/07 - reviewed) Hospitalist ROS - Review of Systems Respiratory: denies: cough, dry, shortness of breath, hemoptysis, SOB with excertion, pleuritic pain, sputum, wheezing, other Cardiovascular: denies: chest pain, palpitations, orthopnea, paroxysmal noc. dyspnea, edema, light headedness, other Gastrointestinal: denies: nausea, vomiting, abdominal pain, diarrhea, constipation, melena, hematochezia, other - Medication Medications: Active Medications Generic Name Dose Route Start Last Admin Trade Name Freq PRN Reason Stop Dose Admin Hydrocodone Bitart/Acetaminophen 1 tab 08/13/19 11:20 08/17/19 07:55 [place] 7.5/325 PO 1 tab Q4H PRN Administration Moderate Pain (4-6) Amlodipine Besylate 10 mg 08/16/19 09:00 08/17/19 08:04 Norvasc PO 10 mg DAILY SHAYY Administration Ascorbic Acid 250 mg 08/14/19 09:00 08/17/19 08:02 Vitamin C PO 250 mg DAILY SHAYY Administration Atorvastatin Calcium 20 mg 08/13/19 21:00 05/31/20 20:58 Lipitor PO 20 mg HS SHAYY Administration Cyanocobalamin 1,000 mcg 08/14/19 09:00 08/17/19 08:03 Vitamin B-12 PO 1,000 mcg DAILY SHAYY Administration Hydralazine HCl 10 mg 08/16/19 13:43 08/16/19 21:08 Apresoline SLOW IVP 10 mg Q4H PRN Administration SBP Greater Than 140 Hydralazine HCl 10 mg 08/17/19 08:18 08/17/19 09:34 Apresoline SLOW IVP 10 mg Q15MIN PRN Administration SBP >160 Sodium Chloride 1,000 mls @ 75 mls/hr 08/13/19 11:30 08/16/19 20:58 Normal Saline 0.9% IV 1,000 mls .[id number] SHAYY Administration Ketorolac Tromethamine 15 mg 08/14/19 07:45 08/16/19 00:01 Toradol IVP 15 mg Q6H PRN Administration pain/headache Labetalol HCl 10 mg 08/13/19 20:18 08/17/19 07:57 Normodyne SLOW IVP 10 mg Q2H PRN Administration SBP >150 Metoprolol Succinate 50 mg 08/17/19 09:00 08/17/19 09:33 Toprol Xl PO 50 mg DAILY SHAYY Administration Morphine Sulfate 2 mg 08/13/19 11:20 08/16/19 23:19 Morphine SLOW IVP 2 mg Q1H PRN Administration Severe Pain (7-10) Ondansetron HCl 4 mg 08/13/19 11:20 08/17/19 00:20 Zofran IVP 4 mg Q6H PRN Administration Nausea/Vomiting Pantoprazole Sodium 40 mg 08/16/19 09:00 08/17/19 08:04 Protonix PO 40 mg DAILY SHAYY Administration Promethazine HCl 12.5 mg 08/14/19 09:49 08/15/19 01:33 Phenergan SLOW IVP 12.5 mg Q6H PRN Administration Nausea Tizanidine HCl 4 mg 08/13/19 11:27 08/17/19 09:23 Zanaflex PO 4 mg Q8H PRN Administration Muscle Spasm - Exam General Appearance: NAD Neck: supple, no JVD Heart: no gallops, no rubs Respiratory: no wheezes, no ronchi Gastrointestinal: soft, non-tender, non-distended Extremities: no cyanosis Hosp A/P - Plan DVT proph w/SCDs chiari malformation 1 s/p decompression HTN uncontrolled DMII, chronic - diet controlled HLD CKD 2 Morbid obesity BMI 43.9 H/O TIA Anxiety DJD Plan: Toprol restarted today Cont Amlodipine Cont PRN Labetalol Cont IVF due to poor PO intake PT/OT to evaluate and treat DVT prophylaxis Will follow. Thank you for this consultation
[2019-08-17] MEDS: Sodium Chloride 0.9% 1,000 ML IV SCH ×2 (14:24→22:49)
[2019-08-17] MEDS: Atorvastatin Calcium 20 MG TAB PO SCH (19:44)
[2019-08-18] MEDS: Dexamethasone 4 mg/ml Vial SLOW IVP SCH ×2 (04:42→09:02)
[2019-08-18] MEDS: Labetalol HCl 100 MG/20 ML VIAL SLOW IVP PRN (04:42)
[2019-08-18] MEDS: HYDROcodone/Acetaminophen 7.5/325 mg Tablet PO PRN ×3 (05:02→23:58)
[2019-08-18] MEDS: tiZANidine HCl 4 MG TAB PO PRN ×2 (05:03→12:49)
[2019-08-18] MEDS ORDERED: Labetalol HCl 100 MG/20 ML VIAL SLOW IVP PRN (06:11)
[2019-08-18] MEDS ORDERED: hydrALAZINE 20 MG/ML VIAL SLOW IVP PRN (06:11)
[2019-08-18] MEDS ORDERED: cloNIDine 0.1 MG TAB PO PRN ×2 (07:45→08:26)
--- NOTE | 2019-08-18 08:42 | PDOC.HOSPP ---
- Subjective Encounter Date: 08/18/19 Encounter Time: 08:30 Subjective: Patient seen and examined for med mngt. No CP or SOB. Didn't sleep well last night. No new complaints. No overnight events - Objective Vital Signs & Weight: Vital Signs (12 hours) Temp Pulse Resp BP BP Pulse Ox 08/18/19 07:23 98.3 F 62 16 127/57 L 95 08/18/19 06:32 67 126/69 08/18/19 04:56 83 168/81 H 08/18/19 04:45 78 155/88 H 08/18/19 04:42 77 182/81 H 08/18/19 04:40 99.1 F 77 18 182/81 H 95 08/17/19 23:21 98.6 F 77 16 137/77 93 L Weight Admit Weight 225 lb Weight 225 lb Most Recent Monitor Data Heart Rate from ECG 80 NIBP 152/81 NIBP BP-Mean 104 Respiration from ECG 15 SpO2 97 I&O: 08/17/19 08/18/19 08/19/19 06:59 06:59 06:59 Intake Total 2688 2191 Output Total 2525 3400 Balance 163 -1209 Result Diagrams: 08/14/19 03:39 08/14/19 03:39 Hospitalist ROS - Review of Systems Respiratory: denies: cough, dry, shortness of breath, hemoptysis, SOB with excertion, pleuritic pain, sputum, wheezing, other Cardiovascular: denies: chest pain, palpitations, orthopnea, paroxysmal noc. dyspnea, edema, light headedness, other Gastrointestinal: denies: nausea, vomiting, abdominal pain, diarrhea, constipation, melena, hematochezia, other - Medication Medications: Active Medications Generic Name Dose Route Start Last Admin Trade Name Freq PRN Reason Stop Dose Admin Hydrocodone Bitart/Acetaminophen 1 tab 08/13/19 11:20 08/18/19 05:02 [place] 7.5/325 PO 1 tab Q4H PRN Administration Moderate Pain (4-6) Ascorbic Acid 250 mg 08/14/19 09:00 08/17/19 08:02 Vitamin C PO 250 mg DAILY SHAYY Administration Atorvastatin Calcium 20 mg 08/13/19 21:00 08/17/19 19:44 Lipitor PO 20 mg HS SHAYY Administration Cyanocobalamin 1,000 mcg 08/14/19 09:00 08/17/19 08:03 Vitamin B-12 PO 1,000 mcg DAILY SHAYY Administration Dexamethasone 1 mg 08/17/19 16:00 08/18/19 04:42 Decadron SLOW IVP 08/18/19 10:01 1 mg Q6H SHAYY Administration Sodium Chloride 1,000 mls @ 75 mls/hr 08/13/19 11:30 08/17/19 22:49 Normal Saline 0.9% IV Not Given .[id number] [facility] Ketorolac Tromethamine 15 mg 08/14/19 07:45 08/16/19 00:01 Toradol IVP 15 mg Q6H PRN Administration pain/headache Morphine Sulfate 2 mg 08/13/19 11:20 08/16/19 23:19 Morphine SLOW IVP 2 mg Q1H PRN Administration Severe Pain (7-10) Ondansetron HCl 4 mg 08/13/19 11:20 08/17/19 00:20 Zofran IVP 4 mg Q6H PRN Administration Nausea/Vomiting Pantoprazole Sodium 40 mg 08/16/19 09:00 08/17/19 08:04 Protonix PO 40 mg DAILY SHAYY Administration Promethazine HCl 12.5 mg 08/14/19 09:49 08/15/19 01:33 Phenergan SLOW IVP 12.5 mg Q6H PRN Administration Nausea Tizanidine HCl 4 mg 08/17/19 20:16 08/18/19 05:03 Zanaflex PO 4 mg Q6H PRN Administration Muscle Spasms - Exam General Appearance: NAD Neck: supple, no JVD Heart: no gallops, no rubs Respiratory: no wheezes, no rales Gastrointestinal: non-tender, non-distended, normal bowel sounds Extremities: no cyanosis, no clubbing Hosp A/P - Plan DVT proph w/SCDs chiari malformation 1 s/p decompression HTN uncontrolled prob due to pain DMII, chronic - diet controlled HLD CKD 2 Morbid obesity BMI 43.9 H/O TIA Anxiety DJD Plan: Cont Toprol Change Amlodipine to Procardia XL Add Clonidine PRN Cont PRN Labetalol/Hydralazine DC IVF when tolerating PO PT/OT DVT prophylaxis with SCDs
--- NOTE | 2019-08-18 08:44 | PRG ---
DATE OF SERVICE: 08/18/2019 SUBJECTIVE: The patient is now 5 days postop after undergoing Arnold Chiari malformation decompression and left fascia joycelyn duraplasty last week. She reports overall feels fine this morning, stating that her headache seems to be a less severe compared to recent days. She denies any nausea at this time. She continues to report dizziness with movement or sitting up; however, she was able to ambulate to the restroom and back overnight. Her [place] catheter remains in place. Her BP has remained elevated with systolic into the 180s, however after her morning blood pressure medications were given last blood pressure this morning was 126/69. I have placed orders requesting strict blood pressure control with goal systolic of less than 150. She has oral amlodipine and metoprolol scheduled, as well as p.r.n. hydralazine and labetalol. OBJECTIVE: The patient is awake, alert, and appropriate. Pupils are 2 mm, equal, round, and reactive to light bilaterally. Extraocular movements are intact. Cranial nerves 2 through 12 are grossly intact. No tongue fasciculations. The patient has excellent 5/5 strength throughout her upper and lower extremity myotomes bilaterally. Sensation to light touch intact throughout extremities. Patton catheter in place. PLAN: The patient is gradually improving overall and I am encouraged by her ambulation last night. She will continue to work with physical therapy for further mobilization. Her [place] catheter can likely be removed later today or tomorrow if she continues to ambulate. Will attempt stricter blood pressure control. We can advance her diet as tolerated. Eventual plan will be for the patient to go to inpatient rehab. Please call for any neurologic changes or other concerns. Job ID: [id number] MTDD
[2019-08-18] MEDS ORDERED: cloNIDine 0.1 MG TAB PO SCH (09:00)
[2019-08-18] MEDS: Ascorbic Acid 500 mg Chewable Tablet PO SCH (09:00)
[2019-08-18] MEDS: NIFEdipine XL 30 MG TAB PO SCH ×2 (09:01→20:42)
[2019-08-18] MEDS: Cyanocobalamin (Vitamin B-12) 1,000 MCG TAB PO SCH (09:01)
--- NOTE | 2019-08-18 10:35 | PRG ---
DATE OF SERVICE: 08/18/2019 Anitra Sandoval is 5 days into her hospitalization. Her nausea has improved. She ambulated yesterday. We are working on inpatient rehab. Job ID: [id number]
[2019-08-18] MEDS: Sodium Chloride 0.9% 1,000 ML IV SCH (11:16)
[2019-08-18] MEDS: Ketorolac Tromethamine 30 MG/ML VIAL IVP PRN (15:05)
[2019-08-18] MEDS: Atorvastatin Calcium 20 MG TAB PO SCH (20:42)
[2019-08-19] MEDS: hydrALAZINE 20 MG/ML VIAL SLOW IVP PRN ×2 (00:01→04:41)
[2019-08-19] MEDS: Sodium Chloride 0.9% 1,000 ML IV SCH ×3 (01:09→20:16)
[2019-08-19] MEDS: HYDROcodone/Acetaminophen 7.5/325 mg Tablet PO PRN ×3 (04:45→16:53)
[2019-08-19] MEDS: tiZANidine HCl 4 MG TAB PO PRN ×2 (04:45→16:53)
--- NOTE | 2019-08-19 09:54 | PRG ---
DATE OF SERVICE: 08/19/2019 Ms. Sandoval is now 6 days into her hospitalization for Chiari decompression. She is improving slowly. She has a history of anxiety attacks and feels as if she has numbness in her throat. She used to get these with anxiety attacks. We will initiate Xanax. In the past, Tahir helped her. We will likely start that as well. Job ID: [id number]
[2019-08-19] MEDS ORDERED: ALPRAZolam 0.5 MG TAB PO SCH (10:15)
[2019-08-19] MEDS: Ondansetron PF 4 MG/2 ML Vial IVP PRN (10:57)
[2019-08-19] MEDS: NIFEdipine XL 30 MG TAB PO SCH ×2 (15:19→20:09)
[2019-08-19] MEDS: Ascorbic Acid 500 mg Chewable Tablet PO SCH (15:19)
[2019-08-19] MEDS: Cyanocobalamin (Vitamin B-12) 1,000 MCG TAB PO SCH (15:19)
[2019-08-19] MEDS ORDERED: ALPRAZolam 0.25 MG TAB PO PRN (18:00)
[2019-08-19] MEDS: busPIRone HCl 5 MG TAB PO SCH (20:11)
[2019-08-19] MEDS: Atorvastatin Calcium 20 MG TAB PO SCH (20:12)
[2019-08-20] MEDS: tiZANidine HCl 4 MG TAB PO PRN (00:08)
[2019-08-20] MEDS: HYDROcodone/Acetaminophen 7.5/325 mg Tablet PO PRN ×2 (00:08→06:00)
[2019-08-20 06:08] LABS: #Basophils 0.1 thou/uL (0.0-0.2); #Eosinphils 0.2 thou/uL (0.0-0.7); #Lymphocytes 4.9 thou/uL (1.20-3.40); #Monocytes 1.4 thou/uL (0.11-0.59); #Neutrophils 10.1 thou/uL (1.40-6.50); %Basophils 0.5 % (0.0-1.0); %Lymphocytes 29.5 % (21.0-51.0); %Monocytes 8.3 % (0.0-10.0); %Neutrophils 60.7 % (42.0-75.0); Hemoglobin 14.2 g/dL (12.0-16.0); Mean Corpuscular HGB CONC 34.3 g/dL (32.0-36.0); Mean Corpuscular Hemoglobin 31.5 pg (27.0-31.0); Mean Corpuscular Volume 91.7 fL (78.0-98.0); Mean Platelet Volume 8.1 fL (7.4-10.4); Platelet Count 299 thou/uL (130-400); RBC Distribution Width 12.6 % (11.5-14.5); White Blood Cell (WBC) Count 16.6 thou/uL (4.8-10.8)
[2019-08-20 06:31] LABS: Anion Gap 13 mmol/L (10-20); BUN (Urea Nitrogen) 10 mg/dL (9.8-20.1); Calc. Creatinine Clearance 127 mL/min (70-130); Calcium 8.7 mg/dL (7.8-10.44); Carbon Dioxide 28 mmol/L (23-31); Chloride 99 mmol/L (98-107); Estimated GFR-MDRD 82; Glucose 106 mg/dL (80-115); Potassium 5.2 mmol/L (3.5-5.1); Sodium 135 mmol/L (136-145)
[2019-08-20] MEDS: busPIRone HCl 5 MG TAB PO SCH ×2 (09:29→19:59)
[2019-08-20] MEDS: Cyanocobalamin (Vitamin B-12) 1,000 MCG TAB PO SCH (09:29)
[2019-08-20] MEDS: Ascorbic Acid 500 mg Chewable Tablet PO SCH (09:30)
[2019-08-20] MEDS: NIFEdipine XL 30 MG TAB PO SCH ×2 (09:30→19:57)
--- NOTE | 2019-08-20 10:05 | PRG ---
DATE OF SERVICE: 08/20/2019 Ms. Sandoval 1 week into her Chiari decompression. She is certainly feeling better today. We have treated her baseline anxiety by adding buspirone which she has taken in the past with as needed Xanax. Again, she is much better. We are awaiting inpatient rehab. Her potassium this morning is 5.2 up from 4.2, and I would like to get one more draw before she goes. She may benefit from a dose of Lasix. Job ID: [id number]
[2019-08-20 10:59] LABS: Potassium 3.9 mmol/L (3.5-5.1)
--- NOTE | 2019-08-20 11:35 | PDOC.HOSPP ---
- Subjective Encounter Date: 08/19/19 Encounter Time: 11:15 Subjective: pt up in bed complains of headache. she felt anxious earlier. However upon my evaluation she feels better after taking the xanax - Objective Vital Signs & Weight: Vital Signs (12 hours) Temp Pulse Resp BP BP BP Pulse Ox 08/20/19 09:30 77 135/75 08/20/19 08:00 96 08/20/19 07:16 98.3 F 77 14 135/75 95 08/20/19 03:11 98.1 F 77 18 116/70 96 08/19/19 23:57 99.0 F 78 18 127/70 95 Weight Admit Weight 225 lb Weight 225 lb Most Recent Monitor Data Heart Rate from ECG 80 NIBP 152/81 NIBP BP-Mean 104 Respiration from ECG 15 SpO2 97 I&O: 08/19/19 08/20/19 08/21/19 06:59 06:59 06:59 Intake Total 1460 1090 Output Total 4850 2750 Balance -7720 -8820 Result Diagrams: 08/20/19 05:34 08/20/19 10:26 Hospitalist ROS - Review of Systems Cardiovascular: denies: chest pain, palpitations, orthopnea, paroxysmal noc. dyspnea, edema, light headedness, other Gastrointestinal: denies: nausea, vomiting, abdominal pain, diarrhea, constipation, melena, hematochezia, other Genitourinary: denies: dysuria, frequency, incontinence, hematuria, retention, other - Medication Medications: Active Medications Generic Name Dose Route Start Last Admin Trade Name Freq PRN Reason Stop Dose Admin Hydrocodone Bitart/Acetaminophen 1 tab 08/13/19 11:20 08/20/19 06:00 [place] 7.5/325 PO 1 tab Q4H PRN Administration Moderate Pain (4-6) Alprazolam 0.25 mg 08/19/19 18:00 08/20/19 06:00 Xanax PO 0.25 mg TIDPRN PRN Administration Anxiety Ascorbic Acid 250 mg 08/14/19 09:00 08/20/19 09:30 Vitamin C PO Not Given DAILY SHAYY Atorvastatin Calcium 20 mg 08/13/19 21:00 08/19/19 20:12 Lipitor PO 20 mg HS SHAYY Administration Buspirone HCl 7.5 mg 08/19/19 21:00 08/20/19 09:29 Buspar PO 7.5 mg BID [facility] Administration Clonidine 0.1 mg 08/18/19 08:26 08/18/19 12:49 Catapres PO 0.1 mg Q4H PRN Administration SBP GREATER THAN 160 Cyanocobalamin 1,000 mcg 08/14/19 09:00 08/20/19 09:29 Vitamin B-12 PO 1,000 mcg DAILY SHAYY Administration Hydralazine HCl 10 mg 08/18/19 06:11 08/19/19 04:41 Apresoline SLOW IVP 10 mg Q4H PRN Administration SBP Greater Than 150 Sodium Chloride 1,000 mls @ 75 mls/hr 08/13/19 11:30 08/19/19 20:16 Normal Saline 0.9% IV Not Given .[id number] [facility] Labetalol HCl 10 mg 08/18/19 06:11 08/19/19 00:54 Normodyne SLOW IVP 10 mg Q2H PRN Administration SBP greater than 150 Metoprolol Succinate 50 mg 08/18/19 21:00 08/19/19 20:26 Toprol Xl PO Not Given 2100 [facility] Morphine Sulfate 2 mg 08/13/19 11:20 08/16/19 23:19 Morphine SLOW IVP 2 mg Q1H PRN Administration Severe Pain (7-10) Nifedipine 30 mg 08/18/19 09:00 08/20/19 09:30 Procardia Xl PO Not Given BID [facility] Ondansetron HCl 4 mg 08/13/19 11:20 08/19/19 10:57 Zofran IVP 4 mg Q6H PRN Administration Nausea/Vomiting Pantoprazole Sodium 40 mg 08/16/19 09:00 08/20/19 09:30 Protonix PO 40 mg DAILY [facility] Administration Promethazine HCl 12.5 mg 08/14/19 09:49 08/15/19 01:33 Phenergan SLOW IVP 12.5 mg Q6H PRN Administration Nausea Tizanidine HCl 4 mg 08/17/19 20:16 08/20/19 00:08 Zanaflex PO 4 mg Q6H PRN Administration Muscle Spasms - Exam Heart: negative: RRR, no murmur, no gallops, no rubs, normal peripheral pulses, irregular, diminshed peripheral pulses, murmur present, II/IV, III/IV Respiratory: negative: CTAB, no wheezes, no rales, no ronchi, normal chest expansion, no tachypnea, normal percussion, rales, rhonchi, tachypneic, wheezes Gastrointestinal: negative: soft, non-tender, non-distended, normal bowel sounds , no palpable masses, no hepatomegaly, no splenomegaly, no bruit, no guarding, no rigidity, tender to palpation, distended, diminished bowl sounds, voluntary guarding Extremities: negative: no cyanosis, no clubbing, no edema, 1+ LE edema, 2+ LE edema, clubbing Hosp A/P (1) Hypertension Code(s): I10 - ESSENTIAL (PRIMARY) HYPERTENSION Status: Acute (2) Diabetes Code(s): E11.9 - TYPE 2 DIABETES MELLITUS WITHOUT COMPLICATIONS Status: Acute (3) Obesity Code(s): E66.9 - OBESITY, UNSPECIFIED Status: Acute (4) Anxiety Code(s): F41.9 - ANXIETY DISORDER, UNSPECIFIED Status: Acute (5) Chiari I malformation Status: Acute - Plan pt feels well on xanax. will continue current bp meds. Pt to be up with PT. DVT ppx with SCD.
[2019-08-20] MEDS: Sodium Chloride 0.9% 1,000 ML IV SCH (18:10)
[2019-08-20] MEDS: Atorvastatin Calcium 20 MG TAB PO SCH (19:59)
[2019-08-21] MEDS: Sodium Chloride 0.9% 1,000 ML IV SCH ×2 (05:00→19:46)
[2019-08-21] MEDS: busPIRone HCl 5 MG TAB PO SCH ×2 (08:47→20:05)
[2019-08-21] MEDS: Ascorbic Acid 500 mg Chewable Tablet PO SCH (08:47)
[2019-08-21] MEDS: NIFEdipine XL 30 MG TAB PO SCH ×2 (08:48→20:05)
[2019-08-21] MEDS: Cyanocobalamin (Vitamin B-12) 1,000 MCG TAB PO SCH (08:48)
--- NOTE | 2019-08-21 12:54 | PDOC.HOSPP ---
- Subjective Encounter Date: 08/20/19 Encounter Time: 11:45 Subjective: pt up in bed no complains - Objective Vital Signs & Weight: Vital Signs (12 hours) Temp Pulse Resp BP BP BP BP 08/21/19 11:12 98.8 F 88 14 08/21/19 09:14 123/74 138/82 140/77 08/21/19 08:48 90 122/76 08/21/19 08:40 08/21/19 07:39 98.2 F 94 16 08/21/19 03:20 98.5 F 97 18 BP Pulse Ox 08/21/19 11:12 144/79 H 95 08/21/19 09:14 08/21/19 08:48 08/21/19 08:40 96 08/21/19 07:39 134/80 96 08/21/19 03:20 141/84 H 96 Weight Admit Weight 225 lb Weight 225 lb Most Recent Monitor Data Heart Rate from ECG 80 NIBP 152/81 NIBP BP-Mean 104 Respiration from ECG 15 SpO2 97 I&O: 08/20/19 08/21/19 08/22/19 06:59 06:59 06:59 Intake Total 1090 600 Output Total 2750 1200 Balance -1660 -600 Result Diagrams: 08/20/19 05:34 08/20/19 10:26 Hospitalist ROS - Review of Systems Cardiovascular: denies: chest pain, palpitations, orthopnea, paroxysmal noc. dyspnea, edema, light headedness, other Gastrointestinal: denies: nausea, vomiting, abdominal pain, diarrhea, constipation, melena, hematochezia, other Genitourinary: denies: dysuria, frequency, incontinence, hematuria, retention, other - Medication Medications: Active Medications Generic Name Dose Route Start Last Admin Trade Name Freq PRN Reason Stop Dose Admin Acetaminophen 650 mg 08/13/19 11:20 08/21/19 12:40 Tylenol PO 650 mg Q4H PRN Administration Headache/Fever/Mild Pain (1-3) Hydrocodone Bitart/Acetaminophen 1 tab 08/13/19 11:20 08/20/19 06:00 [place] 7.5/325 PO 1 tab Q4H PRN Administration Moderate Pain (4-6) Alprazolam 0.25 mg 08/19/19 18:00 08/20/19 06:00 Xanax PO 0.25 mg TIDPRN PRN Administration Anxiety Ascorbic Acid 250 mg 08/14/19 09:00 08/21/19 08:47 Vitamin C PO 250 mg DAILY [facility] Administration Atorvastatin Calcium 20 mg 08/13/19 21:00 08/20/19 19:59 Lipitor PO 20 mg HS SHAYY Administration Buspirone HCl 7.5 mg 08/19/19 21:00 08/21/19 08:47 Buspar PO 7.5 mg BID SHAYY Administration Clonidine 0.1 mg 08/18/19 08:26 08/18/19 12:49 Catapres PO 0.1 mg Q4H PRN Administration SBP GREATER THAN 160 Cyanocobalamin 1,000 mcg 08/14/19 09:00 08/21/19 08:48 Vitamin B-12 PO 1,000 mcg DAILY SHAYY Administration Hydralazine HCl 10 mg 08/18/19 06:11 08/19/19 04:41 Apresoline SLOW IVP 10 mg Q4H PRN Administration SBP Greater Than 150 Sodium Chloride 1,000 mls @ 75 mls/hr 08/13/19 11:30 08/21/19 05:00 Normal Saline 0.9% IV Not Given .[id number] [facility] Labetalol HCl 10 mg 08/18/19 06:11 08/19/19 00:54 Normodyne SLOW IVP 10 mg Q2H PRN Administration SBP greater than 150 Metoprolol Succinate 50 mg 08/18/19 21:00 08/19/19 20:26 Toprol Xl PO Not Given 2100 [facility] Morphine Sulfate 2 mg 08/13/19 11:20 08/16/19 23:19 Morphine SLOW IVP 2 mg Q1H PRN Administration Severe Pain (7-10) Nifedipine 30 mg 08/18/19 09:00 08/21/19 08:48 Procardia Xl PO Not Given BID [facility] Ondansetron HCl 4 mg 08/13/19 11:20 08/19/19 10:57 Zofran IVP 4 mg Q6H PRN Administration Nausea/Vomiting Pantoprazole Sodium 40 mg 08/16/19 09:00 08/21/19 08:48 Protonix PO 40 mg DAILY [facility] Administration Promethazine HCl 12.5 mg 08/14/19 09:49 08/15/19 01:33 Phenergan SLOW IVP 12.5 mg Q6H PRN Administration Nausea Tizanidine HCl 4 mg 08/17/19 20:16 08/20/19 00:08 Zanaflex PO 4 mg Q6H PRN Administration Muscle Spasms - Exam Neck: negative: supple, symmetric, no JVD, no thyromegaly, no lymphadenopathy, no carotid bruit, JVD Heart: negative: RRR, no murmur, no gallops, no rubs, normal peripheral pulses, irregular, diminshed peripheral pulses, murmur present, II/IV, III/IV Respiratory: negative: CTAB, no wheezes, no rales, no ronchi, normal chest expansion, no tachypnea, normal percussion, rales, rhonchi, tachypneic, wheezes Gastrointestinal: negative: soft, non-tender, non-distended, normal bowel sounds , no palpable masses, no hepatomegaly, no splenomegaly, no bruit, no guarding, no rigidity, tender to palpation, distended, diminished bowl sounds, voluntary guarding Hosp A/P (1) Hypertension Code(s): I10 - ESSENTIAL (PRIMARY) HYPERTENSION Status: Acute (2) Diabetes Code(s): E11.9 - TYPE 2 DIABETES MELLITUS WITHOUT COMPLICATIONS Status: Acute (3) Obesity Code(s): E66.9 - OBESITY, UNSPECIFIED Status: Acute (4) Anxiety Code(s): F41.9 - ANXIETY DISORDER, UNSPECIFIED Status: Acute (5) Chiari I malformation Status: Acute - Plan pt feels well on xanax. will continue current bp meds. Pt to be up with PT. DVT ppx with SCD. 08/19 pt feels well overall. Her hyperkalemia improved. will sign off. Appreciate the consult.
[2019-08-21] MEDS: Atorvastatin Calcium 20 MG TAB PO SCH (20:05)
[2019-08-21 20:06] VITALS: BP 132/84
[2019-08-21 20:10] VITALS: TEMP 98.6
== END 2019-08-21 20:20 | DRG 26 ==
LOC: SURG A 05:45 → CCU 10:23 → SURG A 08-15 17:37
PROVIDERS: ADMIT Surgery; ATTEND Surgery
PROC: 00NC0ZZ Release Cerebellum, Open Approach (ICD-10-PCS; principal; 2019-08-13)
PROC: 00U207Z Supplement Dura Mater with Autologous Tissue Substitute, Open Approach (ICD-10-PCS; 2019-08-13)
PROC: 0KBR0ZZ Excision of Left Upper Leg Muscle, Open Approach (ICD-10-PCS; 2019-08-13)
DX: G93.5 Compression of brain (principal); Z11.59 Encounter for screening for other viral diseases; Z96.641 Presence of right artificial hip joint; Z96.652 Presence of left artificial knee joint; G47.33 Obstructive sleep apnea (adult) (pediatric); F32.9 Major depressive disorder, single episode, unspecified; E78.5 Hyperlipidemia, unspecified; J30.2 Other seasonal allergic rhinitis; M19.90 Unspecified osteoarthritis, unspecified site; F41.9 Anxiety disorder, unspecified; J44.9 Chronic obstructive pulmonary disease, unspecified; E66.01 Morbid (severe) obesity due to excess calories; E11.22 Type 2 diabetes mellitus with diabetic chronic kidney disease; I12.9 Hypertensive chronic kidney disease with stage 1 through stage 4 chronic kidney disease, or unspecified chronic kidney disease; N18.2 Chronic kidney disease, stage 2 (mild); Z86.73 Personal history of transient ischemic attack (TIA), and cerebral infarction without residual deficits; Z68.41 Body mass index [BMI] 40.0-44.9, adult; Z90.710 Acquired absence of both cervix and uterus; Z90.49 Acquired absence of other specified parts of digestive tract; Z88.0 Allergy status to penicillin; Z79.82 Long term (current) use of aspirin; Z79.51 Long term (current) use of inhaled steroids; Z91.19 Patient's noncompliance with other medical treatment and regimen; Z87.442 Personal history of urinary calculi; Z87.891 Personal history of nicotine dependence
CPT/HCPCS: 36415; 36416; 80048; 85025; 85027; 85610; 85730; 87635; 93005; 93970; C9113; J0360; J1100; J1885; J1953; J1956; J2001; J2250; J2270; J2370; J2405; J2550; J2704; J3010; J3370; J3490; J7050; P9045; U0003